=== PATIENT | female | born 2000 | race Caucasian/White ===

== ENCOUNTER 2023-09-16 19:06 | Emergency (ER) | payer OTHER, SELFPAY ==
[2023-09-16 19:17] VITALS: BP 115/78; PULSE 87; RESP 16; TEMP 36.2; O2SAT 97
[2023-09-16 20:19] LABS: Strep A DNA Probe* NOT DETECTED (Not Detectd)
--- NOTE | 2023-09-16 20:37 | ED_ITS ---
HPI - General Adult General Date Seen: 09/16/23 Chief complaint: Sore Throat Stated complaint: Covid + last week-now has sore throat, body aches Time Seen by Provider: 09/16/23 20:21 History of Present Illness HPI narrative: This is a very pleasant 23-year-old female, student at [employer], presenting to the ER today for evaluation of sore throat, body ache, fatigues. She did 1st developed URI symptoms including nasal congestion, cough, mild sore throat, body aches 1 week ago on Sunday. She tested positive for coronavirus on Sunday. She has been quarantine ink since then. She felt like her COVID symptoms were getting better. She was down basically just sniffly nose on Sunday and yesterday on Sunday. Today she started to developed a new sore throat that is more intense than previous. She also has new body aches. She feels tired. She feels like her sore throat is similar in character to when she had strep a couple of years ago. She is not really having any new cough. No shortness of breath. No high fever. No headache. No confusion. She has been nauseous but not vomiting. Bowel movements normal. No rash. She is otherwise generally healthy. No diabetes or immunosuppression. No history of cancer. She takes an SSRI and as needed medication for seasonal allergies. Related Data Allergies Allergy/AdvReac Type Severity Reaction Status Date / Time amoxicillin Allergy Severe Verified 09/16/23 19:17 Penicillins Allergy Severe Verified 09/16/23 19:17 [facility] Social History How often do you have a drink containing alcohol: never AUDIT-C Alcohol total score: 0 Non-prescribed substance use: denies use service: No Exam Narrative: Exam Narrative: Constitutional: Appears well-developed and well-nourished. Alert. Conversant. Non toxic. HENT: Head: Atraumatic. Nose: Nose normal. Right ear: Pinna, mastoid, canal are normal. Small amount of fluid behind the TM. No erythema or bulging Left ear: Pinna, mastoid, canal are normal. fluid behind the TM. No erythema or bulging Mouth/Throat: Oral mucosa is clear and moist. no trismus. Pharynx erythematous. Tonsils symmetric. No tonsillar enlargement, erythema, or exudate. Eyes: Conjunctivae normal. EOM normal. Pupils equal, round, and reactive to light. No scleral icterus. Neck: Normal range of motion. Neck supple. No tracheal deviation present. Cardiovascular: Normal rate, regular rhythm. No gallop. No friction rub. No murmur heard. Symmetric radial artery pulses Pulmonary/Chest: Effort normal. No stridor. No respiratory distress. No wheezes. No rales. No rhonchi . No tenderness. Abdominal: Soft. Bowel sounds normal. No distension. No HSM. No mass. No tenderness. No rebound. No guarding. Musculoskeletal: RUE: Normal range of motion. No tenderness. No deformity LUE: Normal range of motion. No tenderness. No deformity RLE: Normal range of motion. No edema. No tenderness. No deformity LLE: Normal range of motion. No edema. No tenderness. No deformity Lymph: Nontender anterior cervical adenopathy bilateral. No posterior cervical adenopathy. No supraclavicular adenopathy. Neurological: Alert and oriented to person, place, and time. Normal strength. CN II-VII intact. No sensory deficit. GCS eye subscore is 4. GCS verbal subscore is 5. GCS motor subscore is 6. Normal coordination Skin: Skin is warm and dry. No rash noted. No pallor. Normal capillary refill. Psychiatric: Normal mood. Normal affect. Const: Vital Signs, click to edit/add: Vital Signs - 24 hr 09/16/23 19:17 Temperature 97.1 F L Pulse Rate [Left P ulse Oximeter] 87 Respiratory Rate 16 Blood Pressure [Ri ght Upper Arm] 115/78 Pulse Oximetry 97 Oxygen Delivery Me thod Room Air Course Vital Signs Vital signs: Initial Vital Signs Temperature 97.1 F L 09/16/23 19:17 Temperature Source Temporal Artery Scan 09/16/23 19:17 Pulse Rate 87 09/16/23 19:17 Pulse Rhythm Regular 09/16/23 19:17 Respiratory Rate 16 09/16/23 19:17 Blood Pressure 115/78 09/16/23 19:17 Blood Pressure Mean 90 09/16/23 19:17 Blood Pressure Position Sitting 09/16/23 19:17 Pulse Oximetry 97 09/16/23 19:17 Oxygen Delivery Method Room Air 09/16/23 19:17 Vital Signs Temperature 97.1 F L 09/16/23 19:17 Pulse Rate 87 09/16/23 19:17 Respiratory Rate 16 09/16/23 19:17 Blood Pressure 115/78 09/16/23 19:17 Pulse Oximetry 97 09/16/23 19:17 Oxygen Delivery Method Room Air 09/16/23 19:17 Temperature 97.1 F L 09/16/23 19:17 Pulse Rate 87 09/16/23 19:17 Respiratory Rate 16 09/16/23 19:17 Blood Pressure 115/78 09/16/23 19:17 Pulse Oximetry 97 09/16/23 19:17 Oxygen Delivery Method Room Air 09/16/23 19:17 Medical Decision Making MDM Narrative Medical decision making narrative: This patient presented with sore throat and clinical evidence of pharyngitis. She was COVID positive with symptoms beginning 7 days ago and positive test 5 days ago. The rapid strep test is negative, and formal culture has been set up in the lab. There is no clinical evidence of peritonsillar abscess, retropharyngeal abscess, Lemierre's Syndrome, epiglottis, or Hernandez's angina. The etiology is most likely viral. Could be related ongoing COVID. Also consider possible mono given her fatigue. We will hold off on mono spot for now given that she is early in the course of her pharyngitis. No other vescular lesions to suggest HFM. The patient's symptoms are consistent with viral pharyngitis. I have recommended treatment with analgesics, and we will await formal culture results. If the culture is positive, an ED physician will call the patient to initiate anti-microbial therapy. Return if increasing pain, change in voice, neck pain, vomiting, fever, or shortness of breath. Follow-up with primary physician if not improving in 3-5 days. Precautions for return to the ER reviewed. Lab Data Labs: Lab Results 09/16/23 Range/Units 19:20 Group A Strep DNA NOT DETECTED (Not Detectd) Discharge Plan Discharge Clinical Impression: COVID-19, Pharyngitis Patient Disposition: Home, Self-Care Condition: Stable Instructions: Pharyngitis (ED), COVID-19 (Coronavirus Disease 2019) (ED) Additional Instructions: Please rest. Continue to quarantine yourself until your symptoms are improving. Drink plenty of fluids. Use cold drinks, popsicles, ice cream to help severe sore throat. Use Tylenol ibuprofen if needed for sore throat and fever. If you have worsening symptoms such as worsening sore throat, trouble s wallowing, dehydration, trouble breathing, high fever, bad headache, confusion, or any problems please come back to the ER immediately. If not improved within the next 3-5 days, please return to the ER or see your regular doctor or [facility] for re-evaluation. Stand Alone Forms: [facility] Info Instructions
== END 2023-09-16 21:12 | disposition home or self-care (01) ==
LOC: ED 21:10
PROVIDERS: Emergency Provider Emergency Medicine
DX: U07.1 COVID-19 (principal)
CPT/HCPCS: 87651; 99283